=== PATIENT | female | born 1995 | race Caucasian/White ===

== ENCOUNTER 2023-01-04 15:25 | Outpatient (RCR) | payer MEDICAID ==
[2023-01-10] MEDS ORDERED: VENL-48 PO (10:14)
== END 2023-01-18 | disposition home or self-care (01) ==
LOC: LAB 15:25
PROVIDERS: ATTEND Surgery
DX: R19.7 Diarrhea, unspecified (principal)
CPT/HCPCS: 87015; 87045; 87046; 87324; 87328; 87329; 87449; 87899

== ENCOUNTER 2023-01-10 05:38 | Outpatient (CLI) | payer MEDICAID ==
[~2023-01-10] VITALS: Ht 152.4 cm; Wt 89.4 kg
[2023-01-10] MEDS ORDERED: VENL-48 PO (10:14)
== END 2023-01-10 10:24 | disposition home or self-care (01) ==
LOC: PREOP 05:38
PROVIDERS: ATTEND Surgery
DX: Z01.818 Encounter for other preprocedural examination (principal)

== ENCOUNTER 2023-01-15 10:53 | Day surgery (SDC) | payer MEDICAID ==
[~2023-01-15] VITALS: Ht 152 cm; Wt 89.4 kg
[~2023-01-15 10:53] MED LIST: VENL-48 PO
[2023-01-15] MEDS ORDERED: LACTATED RINGERS 1,000 ML 1,000 ML IV STA (11:04)
[2023-01-15] MEDS ORDERED: HURRICAINE EXT TUBE (BENZOCAINE) XX PRN (11:15)
[2023-01-15 11:26] VITALS: BP 133/96
[2023-01-15] MEDS ORDERED: MIDAZOLAM INJ 2 MG/2 ML VIAL ONE (12:04)
--- NOTE | 2023-01-15 12:26 | Progress Note-Pre Operative ---
Pre-Operative Progress Note Date of Available H&P: Jan 04, 2023 Date H&P Reviewed: Jan 15, 2023 Time H&P Reviewed: 12:17 History & Physical: H&P Reviewed, Patient Examed, No changes noted Pre-Operative Diagnosis: Abdominal pain, nausea, change in bowel habits JOE NELSON DO Jan 15, 2023 12:26
[2023-01-15 12:45] VITALS: BP 138/66
[2023-01-15 12:50] VITALS: BP 128/64
--- NOTE | 2023-01-15 12:51 | Progress Note-Post Operative ---
Post-Operative Progess Note Surgeon (s)/Checkerer Hand (s) Surgeon JOE NELSON DO Checkerer Hand: ALEJA Ghosh Pre-Operative Diagnosis Abdominal pain, nausea, change in bowel habits Post-Operative Diagnosis Duodenitis Gastritis Hiatal hernia Polyp Int hemorrhoid Procedure & Operative Findings Date of Procedure 01/15/23 Procedure Performed/Findings EGD with biopsy Colonoscopy with hot biopsy Colonoscopy with cold biopsy PROCEDURE NOTE: After informed consent was obtained, the patient was brought to the endoscopy suite, placed in bed in left lateral decubitus position. She was administered IV sedation by the [employer] DRIVER HELPER who then monitored vitals the entire time, heart rate, blood pressure and pulse ox and the scope was inserted down the mouth through the esophagus into the stomach. On the way down, noted some mild esophagitis, took a picture, pushed into the stomach, pushed past the antrum into the duodenum. Duodenum had inflammation and what looked like small ulcers; did a biopsy here. Pulled back, noted some gastritis and did a biopsy of the antrum, then retroflexed the scope, saw small Grade II AFS hiatal hernia, took a picture of this and then pulled the scope into the GE junction, took another picture of the hiatal hernia and then did a biopsy of the GE junction. Pushed the scope back into the stomach, suctioned all the air out of the stomach. At this point pulled the scope up the esophagus and out the mouth. Switched camera, switched gloves, went down below and started the colonoscopy. Pushed all the way to about 130 cm and pushed into the cecum, took a picture of appendiceal orifice and noted the ileocecal valve. Able to get into the terminal ileum and did a cold biopsy. Then slowly withdrew the scope insufflating to look circumferentially at the alberts starting in the cecum, up the ascending colon to the hepatic flexure, then down the transverse colon, splenic flexure, into the descending colon down in the sigmoid and then into the rectum. Found a small polyp here, took a picture and then able to remove it completely with hot biopsy. Finally, in the rectal vault I retroflexed the scope. Took a picture of the internal hemorrhoids. The patient tolerated the procedure and she recovered in the endoscopy suite. Recommended for repeat colonoscopy in 5 years Anesthesia Type IV sedation by [employer] HELPER Estimated Blood Loss Estimated blood loss (mL): scant Specimens/Packing Specimens Removed duodenal bx antral bx body of stomach bx GE junction bx Terminal ileum bx Rectal polyp JOE NELSON DO Jan 15, 2023 12:51
--- NOTE | 2023-01-15 12:52 | Endoscopy Discharge Instruct ---
Endo Procedure/Findings Findings 1.: Gastritis 2.: Hiatal Hernia, Other Findings (duodenitis) 3.: Polyp 4.: Internal Hemorrhoids Discharge Instructions - Activity: You might feel a little sleepy until tomorrow. This is due to the medicine you received to relax you. Until tomorrow, you should: NOT drive a car, operate machinery or power tools. NOT drink any alcoholic beverages. NOT make any important decisions or sign importortant papers. Do not return to work until tomorrow, unless otherwise instructed. Resume previous activities tomorrow. Diet: Start by taking liquids. If you tolerate liquids, advance to solid food. 1.: EGD in 1 year 2.: Colonscopy in 5 years Notify Physician - If you experience excessive bleeding, unusual abdominal pain, fever, or chest pain, contact your doctor immediately. Follow-Up: Other Follow up in my office in a week JOE NELSON DO Jan 15, 2023 12:52
[2023-01-15 12:55] VITALS: BP 140/69
--- NOTE | 2023-01-15 13:17 | Anesthesia-General Post-Op ---
MAC Patient Condition Mental Status/LOC: Same as Preop Cardiovascular: Satisfactory Nausea/Vomiting: Absent Respiratory: Satisfactory Pain: Controlled Complications: Absent Post Op Complications Complications None Follow Up Care/Instructions Patient Instructions None needed. Anesthesiology Discharge Order Discharge Order Patient is doing well, no complaints, stable vital signs, no apparent adverse anesthesia problems. No complications reported per nursing. EDITH BEDOYA CRNA Jan 15, 2023 13:17
[2023-01-15 13:27] VITALS: BP 140/69
== END 2023-01-15 13:33 | disposition home or self-care (01) ==
LOC: ENDO 10:53
PROVIDERS: ATTEND Surgery
DX: K62.1 Rectal polyp (principal); K64.8 Other hemorrhoids; K29.80 Duodenitis without bleeding; K29.70 Gastritis, unspecified, without bleeding; K44.9 Diaphragmatic hernia without obstruction or gangrene; K21.00 Gastro-esophageal reflux disease with esophagitis, without bleeding; F17.210 Nicotine dependence, cigarettes, uncomplicated; F17.290 Nicotine dependence, other tobacco product, uncomplicated; E66.9 Obesity, unspecified; K52.9 Noninfective gastroenteritis and colitis, unspecified; Z68.38 Body mass index [BMI] 38.0-38.9, adult
CPT/HCPCS: 84703; 88305